=== PATIENT | female | born 1985 | race Caucasian/White ===

== ENCOUNTER 2019-08-04 00:38 | Emergency (ER) | payer OTHER ==
[~2019-08-04] VITALS: Ht 167.6 cm; Wt 77.1 kg
[2019-08-04] MEDS ORDERED: ZITHROMAX250 MG PO (01:24)
[2019-08-04] MEDS ORDERED: PSEUDOEPHEDRINE60 M2 PO (01:25)
== END 2019-08-04 01:36 | disposition home or self-care (01) ==
LOC: ED 00:38
DX: H65.02 Acute serous otitis media, left ear (principal); J32.9 Chronic sinusitis, unspecified

== ENCOUNTER 2020-07-20 19:06 | Emergency (ER) | payer OTHER ==
[~2020-07-20] VITALS: Ht 167.6 cm; Wt 68.0 kg
[~2020-07-20 19:06] MED LIST: PSEUDOEPHEDRINE60 M2 PO; ZITHROMAX250 MG PO
== END 2020-07-20 20:07 | disposition home or self-care (01) ==
LOC: ED 19:06
DX: S92.511A Displaced fracture of proximal phalanx of right lesser toe(s), initial encounter for closed fracture (principal); W22.8XXA Striking against or struck by other objects, initial encounter; Y93.89 Activity, other specified; Y92.89 Other specified places as the place of occurrence of the external cause; Y99.8 Other external cause status

== ENCOUNTER 2022-02-03 00:21 | Emergency (ER) | payer OTHER ==
[~2022-02-03] VITALS: Ht 167.6 cm; Wt 68.0 kg
[2022-02-03] MEDS ORDERED: DOXYCYCLINE HY100 M3 PO (00:29)
[2022-02-03] MEDS ORDERED: NAPROXEN500 MG PO (00:29)
[2022-02-03 01:29] LABS: BASO % 0.3 % (0.0-1.0); EOS # 0.1 10*3/uL (0.0-0.4); EOS % 1.3 % (1.0-4.0); LYMPH # 2.4 10*3/uL (1.3-4.4); LYMPH % 34.3 % (27.0-41.0); MEAN CELL VOLUME 91.4 fl (81.0-99.0); MEAN CORPUSCULAR HGB 29.2 pg (27.0-31.0); MEAN PLATELET VOLUME 10.2 fl (9.6-12.3); MONO # 0.5 10*3/uL (0.1-1.0); MONO % 7.8 % (3.0-9.0); NEUT # 3.9 10*3/uL (2.3-7.9); PLATELET COUNT AUTOMATED 309 10*3/uL (130-400); RED BLOOD COUNT 3.83 10*6/uL (4.10-5.10); RED CELL DISTRI WIDTH 12.4 % (0-14.5); WHITE BLOOD COUNT 6.9 10*3/uL (4.8-10.8)
[2022-02-03 01:43] LABS: ALKALINE PHOSPHATASE 92 U/L (45-117); BUN 10 mg/dl (7-24); CHLORIDE 105 mmol/L (98-107); CREATININE 0.85 mg/dL (0.55-1.02); POTASSIUM 4.1 mmol/L (3.5-5.1); SGOT/AST 15 IU/L (3-35); SGPT/ALT 16 U/L (12-78); SODIUM 139 mmol/L (136-145); TOTAL PROTEIN 7.4 gm/dL (6.4-8.2)
[2022-02-03] MEDS ORDERED: CEPHALEXIN500 M1 PO (04:49)
== END 2022-02-03 04:56 | disposition home or self-care (01) ==
LOC: ED 00:21
PROVIDERS: Emergency Medicine
DX: L03.116 Cellulitis of left lower limb (principal)

== ENCOUNTER 2023-01-11 13:41 | Inpatient (IN) | payer OTHER ==
[~2023-01-11] VITALS: Ht 167.6 cm; Wt 77.1 kg
[~2023-01-11 13:41] MED LIST changes: +CEPHALEXIN500 M1 PO; +DOXYCYCLINE HY100 M3 PO; +NAPROXEN500 MG PO
[2023-01-11 14:00] VITALS: BP 131/81
[2023-01-11 15:48] LABS: BASO % 0.2 % (0.0-1.0); EOS # 0.4 10*3/uL (0.0-0.4); EOS % 2.8 % (1.0-4.0); HEMATOCRIT 32.1 % (37.0-47.0); LYMPH # 1.8 10*3/uL (1.3-4.4); MEAN CELL VOLUME 86.1 fl (81.0-99.0); MEAN CORPUSCULAR HGB 26.5 pg (27.0-31.0); MEAN CORPUSCULAR HGB CONC 30.8 g/dl (33.0-37.0); MEAN PLATELET VOLUME 9.3 fl (9.6-12.3); NEUT # 10.8 10*3/uL (2.3-7.9); NEUT % 76.3 % (47.0-73.0); PLATELET COUNT AUTOMATED 497 10*3/uL (130-400); RED BLOOD COUNT 3.73 10*6/uL (4.10-5.10); RED CELL DISTRI WIDTH 13.8 % (0-14.5); WHITE BLOOD COUNT 14.2 10*3/uL (4.8-10.8)
[2023-01-11 16:10] LABS: ALKALINE PHOSPHATASE 134 U/L (46-116); BUN < 5 mg/dl (9-23); CHLORIDE 100 mmol/L (98-107); POTASSIUM 3.5 mmol/L (3.4-5.1); SGPT/ALT 13 U/L (10-49); TOTAL PROTEIN 7.8 gm/dL (6.0-8.0)
[2023-01-11] MEDS ORDERED: IBU800 MG PO (17:36)
[2023-01-11] MEDS ORDERED: CEFUROXIME AXE500 MG PO (17:37)
[2023-01-11 20:00] VITALS: BP 112/71
[2023-01-11] MEDS ORDERED: CLEOCIN HCL300 MG PO (22:58)
== END 2023-01-11 23:14 | disposition home or self-care (01) | DRG 720 ==
LOC: ED 13:41 → EDHOLD 17:29 → 5E 18:30
PROVIDERS: Nurse Practitioner Family; ADMIT Internal Medicine; ATTEND Internal Medicine
DX: A41.9 Sepsis, unspecified organism (principal); N61.1 Abscess of the breast and nipple; N61.0 Mastitis without abscess; D75.839 Thrombocytosis, unspecified; R73.9 Hyperglycemia, unspecified; R74.01 Elevation of levels of liver transaminase levels; E87.1 Hypo-osmolality and hyponatremia; E44.0 Moderate protein-calorie malnutrition; D50.9 Iron deficiency anemia, unspecified; Z79.1 Long term (current) use of non-steroidal anti-inflammatories (NSAID); Z79.2 Long term (current) use of antibiotics; Z68.27 Body mass index [BMI] 27.0-27.9, adult

== ENCOUNTER 2023-09-08 17:23 | Emergency (ER) | payer OTHER ==
[~2023-09-08] VITALS: Ht 167.6 cm; Wt 77.6 kg
[~2023-09-08 17:23] MED LIST changes: +CEFUROXIME AXE500 MG PO; +CLEOCIN HCL300 MG PO; +IBU800 MG PO
[2023-09-08 18:49] LABS: BILIRUBIN Negative (Negative); BLOOD 2+ (Negative); CLARITY Turbid (Clear); COLOR Yellow (Yellow); GLUCOSE Negative (Negative); KETONE 1+ (Negative); LEUKO ESTERASE 3+ (Negative); NITRITE Negative (Negative); SPECIFIC GRAVITY 1.015 (1.001-1.030)
[2023-09-08 18:56] LABS: BACTERIA 1+; WBC TNTC wbc/hpf (0-5)
[2023-09-08 19:07] LABS: BASO % 0.2 % (0.0-1.0); EOS % 0.3 % (1.0-4.0); HEMATOCRIT 37.5 % (37.0-47.0); LYMPH # 1.2 10*3/uL (1.3-4.4); LYMPH % 10.5 % (27.0-41.0); MEAN CELL VOLUME 89.3 fl (81.0-99.0); MEAN CORPUSCULAR HGB 29.3 pg (27.0-31.0); MEAN CORPUSCULAR HGB CONC 32.8 g/dl (33.0-37.0); MONO # 0.6 10*3/uL (0.1-1.0); MONO % 5.6 % (3.0-9.0); NEUT # 9.3 10*3/uL (2.3-7.9); PLATELET COUNT AUTOMATED 265 10*3/uL (130-400); RED CELL DISTRI WIDTH 12.4 % (0-14.5); WHITE BLOOD COUNT 11.2 10*3/uL (4.8-10.8)
[2023-09-08 19:33] LABS: ALKALINE PHOSPHATASE 108 U/L (46-116); BUN 5 mg/dl (9-23); CHLORIDE 104 mmol/L (98-107); POTASSIUM 3.4 mmol/L (3.4-5.1); SGPT/ALT 42 U/L (5-49); TOTAL PROTEIN 7.7 gm/dL (6.0-8.0)
[2023-09-08] MEDS ORDERED: CEPHALEXIN500 M1 PO (20:04)
== END 2023-09-08 20:09 | disposition home or self-care (01) ==
LOC: ED 17:23
PROVIDERS: Emergency Medicine; Nurse Practitioner
DX: O23.41 Unspecified infection of urinary tract in pregnancy, first trimester (principal); N39.0 Urinary tract infection, site not specified; R10.2 Pelvic and perineal pain; Z3A.11 11 weeks gestation of pregnancy; Z98.890 Other specified postprocedural states